=== PATIENT | female | born 1990 | race American Indian/Alaskan Native ===

== ENCOUNTER 2017-11-17 13:32 | Emergency (ER) | payer SELFPAY ==
[2017-11-17] MEDS ORDERED: MOTRIN PO ONE (15:33)
[2017-11-17] MEDS ORDERED: TYLENOL PO ONE (15:33)
--- NOTE | 2017-11-17 15:34 | Emergency Department Report ---
Blank Doc - Documentation Documentation: is a 27-year-old female comes in with the pain worse L lightheadedness she states that the knee was swollen and she is having a lot of pain when she walks. All work patient will get x-ray and give pain medication we'll send patient home with x-rays unremarkable.
[2017-11-17] MEDS ORDERED: ROXICODONE PO ONE (16:14)
--- NOTE | 2017-11-17 16:56 | Emergency Department Report ---
ED General Adult HPI - General Chief complaint: Pain General Stated complaint: SICKLE CELL CRISIS Source: patient Mode of arrival: Ambulatory Limitations: No Limitations - History of Present Illness Initial comments: Patient is a 27-year-old female past medical history of sickle cell who presents with left knee pain that's been going on for last couple days. Patient states that her left knee pain as a 8 out 10. She says that normally when she has a left knee pain she has her sickle cell. 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 Severity scale (0 -10): 3 - Related Data Home Medications Medication Instructions Recorded Confirmed Last Taken Hydroxyurea [Hydrea] 500 mg PO DAILY 10/10/15 10/10/15 Unknown Promethazine [Phenergan TAB] 25 mg PO Q6HR PRN 10/10/15 10/10/15 Unknown Previous Rx's Medication Instructions Recorded Last Taken Type Morphine ER [Ms Contin ER] 15 mg PO Q8HR #20 tablet 10/13/15 Unknown Rx oxyCODONE /ACETAMINOPHEN [Percocet 2 tab PO Q6H PRN #30 tablet 10/13/15 Unknown Rx 5/325 mg] Diclofenac Sodium [Voltaren] 100 gm TP Q6H #1 gel..gram. 11/17/17 Unknown Rx Folic Acid [Folvite] 1 mg PO QDAY #30 tablet 11/17/17 Unknown Rx Oxycodone HCl [Roxicodone] 5 mg PO Q6H #13 tablet 11/17/17 Unknown Rx Allergies Allergy/AdvReac Type Severity Reaction Status Date / Time amoxicillin Allergy Hives Verified 10/09/15 19:47 cephalexin monohydrate Allergy Hives Verified 10/09/15 19:47 [From Keflex] vancomycin Allergy Hives Verified 10/09/15 19:47 ED Review of Systems ROS: Stated complaint: SICKLE CELL CRISIS Other details as noted in HPI Constitutional: denies: chills, fever Eyes: denies: eye pain, eye discharge, vision change ENT: denies: ear pain, throat pain Respiratory: denies: cough, shortness of breath, wheezing Cardiovascular: denies: chest pain, palpitations Endocrine: no symptoms reported Gastrointestinal: denies: abdominal pain, nausea, diarrhea Genitourinary: denies: urgency, dysuria, discharge Musculoskeletal: other (left knee). denies: back pain, joint swelling, arthralgia Skin: denies: rash, lesions Neurological: denies: headache, weakness, paresthesias Psychiatric: denies: anxiety, depression Hematological/Lymphatic: denies: easy bleeding, easy bruising ED Past Medical Hx - Past Medical History Hx Congestive Heart Failure: No Hx Diabetes: No Hx Deep Vein Thrombosis: No Hx Sickle Cell Disease: Yes Hx Asthma: No Hx COPD: No Additional medical history: heart murmur - Surgical History Hx Pacemaker: No Hx Internal Defibrillator: No Hx Cholecystectomy: Yes - Social History Smoking Status: Never Smoker Substance Use Type: None - Medications Home Medications: Home Medications Medication Instructions Recorded Confirmed Last Taken Type Hydroxyurea [Hydrea] 500 mg PO DAILY 10/10/15 10/10/15 Unknown History Promethazine [Phenergan TAB] 25 mg PO Q6HR PRN 10/10/15 10/10/15 Unknown History Morphine ER [Ms Contin ER] 15 mg PO Q8HR #20 tablet 10/13/15 Unknown Rx oxyCODONE /ACETAMINOPHEN [Percocet 2 tab PO Q6H PRN #30 tablet 10/13/15 Unknown Rx 5/325 mg] Diclofenac Sodium [Voltaren] 100 gm TP Q6H #1 gel..gram. 11/17/17 Unknown Rx Folic Acid [Folvite] 1 mg PO QDAY #30 tablet 11/17/17 Unknown Rx Oxycodone HCl [Roxicodone] 5 mg PO Q6H #13 tablet 11/17/17 Unknown Rx ED Physical Exam - General Limitations: No Limitations General appearance: alert, in no apparent distress - Head Head exam: Present: atraumatic, normocephalic - Eye Eye exam: Present: normal appearance - ENT ENT exam: Present: mucous membranes moist - Neck Neck exam: Present: normal inspection - Respiratory Respiratory exam: Present: normal lung sounds bilaterally. Absent: respiratory distress - Cardiovascular Cardiovascular Exam: Present: regular rate, normal rhythm. Absent: systolic murmur, diastolic murmur, rubs, gallop - GI/Abdominal GI/Abdominal exam: Present: soft, normal bowel sounds - Extremities Exam Extremities exam: Present: normal inspection - Back Exam Back exam: Present: normal inspection - Neurological Exam Neurological exam: Present: alert, oriented X3 - Psychiatric Psychiatric exam: Present: normal affect, normal mood - Skin Skin exam: Present: warm, dry, intact, normal color. Absent: rash ED Course Vital Signs 11/17/17 11/17/17 11/17/17 13:37 15:54 16:27 Temperature 98 F Pulse Rate 83 Respiratory 16 16 18 Rate Blood Pressure 98/52 O2 Sat by Pulse 98 Oximetry ED Medical Decision Making - Medical Decision Making Cdx: Vaso-occlusive crisis ddx: Knee arthralgia, occult patellar fracture I will get x-ray of knee and oral pain medication I will give patient oral pain medications and I will send patient home discussed plan with patient patient agrees with plan additional verbal discharge instructions were given. Discussed getting blood work patient does not want to get stuck and we engaged in shared decision making. Critical care attestation.: If time is entered above; I have spent that time in minutes in the direct care of this critically ill patient, excluding procedure time. ED Disposition Clinical Impression: Sickle cell pain crisis Left knee pain Qualifiers: Chronicity: acute Qualified Code(s): M25.562 - Pain in left knee Disposition: DC-01 TO HOME OR SELFCARE Is pt being admited?: No Does the pt Need Aspirin: No Condition: Stable Instructions: Arthralgia (ED), Sickle Cell Crisis (ED) Prescriptions: Diclofenac Sodium [Voltaren] 100 gm TP Q6H #1 gel..gram. Folic Acid [Folvite] 1 mg PO QDAY #30 tablet Oxycodone HCl [Roxicodone] 5 mg PO Q6H #13 tablet Referrals: OCHOA GRIMES MD [Staff Physician] - 3-5 Days
[2017-11-17 17:26] VITALS: BP 102/74
--- NOTE | 2017-11-19 07:37 | XRay Report ---
FINAL REPORT EXAM: XR KNEE 3V LT HISTORY: LT knee pain COMPARISONS: None. FINDINGS: Three views left knee Alignment is anatomic, joint spaces are preserved, and subchondral surfaces are smooth. No fracture. Possible small effusion. IMPRESSION: Possible small left knee effusion without fracture or gross malalignment. If an injury occurred, consider follow-up MRI for evaluation of structural soft tissues. If there is concern for infection, consider joint aspiration.
== END 2017-11-17 17:26 | disposition home or self-care (01) ==
LOC: ED 13:32
DX: D57.00 Hb-SS disease with crisis, unspecified (principal); Z88.1 Allergy status to other antibiotic agents
CPT/HCPCS: 99283